=== PATIENT | female | born 1955 | race African-American/Black ===

== ENCOUNTER 2020-01-23 21:04 | Emergency (ER) | payer MEDICARE, MEDICAID ==
[~2020-01-23] VITALS: Ht 177.8 cm; Wt 105.0 kg
[~2020-01-23 21:04] MED LIST: DIVA-75 PO
[2020-01-23] MEDS ORDERED: HYDROCODONE/ACETAMINOPHEN 5/325MG TABLET PO ONE (22:00)
[2020-01-23 23:30] VITALS: BP 132/74
== END 2020-01-23 23:40 | disposition home or self-care (01) ==
LOC: ER 21:04
DX: S42.342A Displaced spiral fracture of shaft of humerus, left arm, initial encounter for closed fracture (principal); W01.10XA Fall on same level from slipping, tripping and stumbling with subsequent striking against unspecified object, initial encounter; I10 Essential (primary) hypertension; Y93.89 Activity, other specified; Y92.018 Other place in single-family (private) house as the place of occurrence of the external cause
CPT/HCPCS: 73030; 99283